=== PATIENT | female | born 1960 | race African-American/Black ===

== ENCOUNTER 2016-06-16 05:24 | Emergency (ER) | payer OTHER ==
--- NOTE | ~2016-06-16 | CT4 ---
[facility] A Service of [facility] RADIOLOGY TEXT RESULTS PATIENT: ARNOL ZAVALA LOCATION: SED : 56 UNIT #: [id number] AGE: [address]: Kathie Marrufo MD SEX: F ORDER DR: [id number] [place] [id number] E MR#: [id number] Acc #: [id number] NAME: ARNOL ZAVALA : 1960 SEX: F STUDY DATE/TIME: 06/16/2016 5:47 UNIT: SED ROOM: STUDY DESCRIPTION: CT Abd and Pelv Wo Cont Attending Physician: Kathie Marrufo M.D. Ordering Physician: Kathie Marrufo M.D. Primary Care Physician: Primary Care Physician No MEDICAL IMAGING REPORT This report is preliminary unless electronic signature is present. EXAM CT abdomen and pelvis without contrast, 06/16/2016 HISTORY 55-year-old female with blood in urine. Pain and urinary frequency since 01:00 today. Lower back pain. Hypertension. Previous cholecystectomy, hysterectomy. COMPARISON None. PROCEDURE 3.0 mm noncontrast axial images through the abdomen and pelvis. Enteric contrast was not administered. Sagittal and coronal reformatted images are obtained. TECHNIQUE This CT exam was performed with one or more of the following radiation dose reduction techniques: automatic exposure control, adjustment of mA and/or kV according to patient size, and iterative reconstruction. FINDINGS ABDOMEN FINDINGS: The study is limited secondary to attenuation by patient's body habitus. Kidneys have an unremarkable noncontrast appearance. No urinary tract stone or hydronephrosis or perinephric inflammation is seen. Lung bases are free of consolidation. Calcified granuloma is present within the right lower lobe. Cholecystectomy. Noncontrast appearance of the liver, spleen, pancreas and adrenal glands is within normal limits. Limited evaluation of bowel due to lack of enteric contrast but no focal bowel inflammation is seen. Appendix is normal. [facility] A Service of [facility] RADIOLOGY TEXT RESULTS PATIENT: ARNOL ZAVALA LOCATION: SED : 56 UNIT #: [id number] AGE: [address]: Kathie Marrufo MD SEX: F ORDER DR: PELVIS FINDINGS: Hysterectomy. Urinary bladder and rectum are normal. Calcified pelvic phleboliths incidentally noted. Degenerative disc changes are present at L3-4 through L5-S1. No acute osseous abnormalities are identified. Degenerative changes in the bilateral sacroiliac joints. IMPRESSION 1. No acute findings in the abdomen or pelvis. No urinary tract stone or hydronephrosis. 2. Normal appendix. 3. Cholecystectomy and hysterectomy. Dictated by... Kaelyn Green M.D. THIS IS AN ELECTRONICALLY VERIFIED REPORT Kaelyn Green M.D. at 06/17/2016 4:19 AM EMETERIO/debbie TD: 06/16/2016 09:59 JOB #: [id number] MEDICAL IMAGING REPORT Page 1 of 1
[2016-06-16 05:19] LABS: URINE SOURCE CLEAN CATCH
[2016-06-16 05:21] LABS: URINE APPEARANCE CLOUDY; URINE BILIRUBIN NEG (NEG); URINE BLOOD 3+ (NEG); URINE GLUCOSE NEG (NORM); URINE KETONE 1+ (NEG); URINE LEUKOCYTE ESTERASE 2+ (NEG); URINE NITRATE POS (NEG); URINE PH 7.5 (5-8); URINE PROTEIN 3+ (NEG); URINE SPECIFIC GRAVITY 1.015 (1.003-1.035)
[2016-06-16 05:22] LABS: URINE COLOR RED
[2016-06-16 05:23] LABS: MICRO INDICATED? YES
[~2016-06-16 05:24] MED LIST: ALBUTEROL17 GM INH; ASPIRIN81 M1 PO; LEVAQUIN750 M1 PO; LEVOXYL100 MC1 PO; LIPITOR; LOPRESSOR PO; NAPROXEN PO; SYNTHROID300 MCG PO; [UNRECOGNIZED DRUG - REMARK]
[2016-06-16 05:30] LABS: URINE RBC INNUM /[HPF] (0-2)
[2016-06-16 05:35] LABS: CULTURE INDICATED? YES; URINE BACTERIA NEG (NEG); URINE SQUAMOUS EPITHELIAL CELL OCCAS /[HPF]; URINE TRANSITIONAL EPI CELLS FEW /[HPF]
[2016-06-16 05:36] LABS: URINE MUCUS PRESENT
[2016-06-16 05:41] LABS: BASOPHIL% 0.3 % (0-2.5); DIFF IND NO; EOSINOPHIL# 0.1 X10e3 (0-0.7); HEMATOCRIT 38.1 % (35.0-45.0); HEMOGLOBIN 12.3 gm/dL (12.0-16.0); LYMPHOCYTE# 2.6 X10e3 (1.0-3.5); LYMPHOCYTE% 27.8 % (17.0-45.0); MEAN CELL VOLUME 88.9 FL (83-96); MEAN CORPUSCULAR HEMOGLOBIN 28.6 PG (28-34); MEAN CORPUSCULAR HGB CONC 32.2 g/dL (30-36); MEAN PLATELET VOLUME 8.5 FL (6.5-11.5); MONOCYTE# 0.9 X10e3 (0-1.0); MONOCYTE% 9.6 % (3.0-12.0); NEUTROPHIL# 5.8 X10e3 (1.5-7.1); NEUTROPHIL% 61.3 % (40-75); PLATELET COUNT 278 X10e3 (140-420); RED BLOOD COUNT 4.29 X10e (3.90-5.30); RED CELL DISTRIBUTION WIDTH 14.3 % (11.0-15.5); WHITE BLOOD COUNT 9.4 X10e3 (4.0-10.5)
[2016-06-16 05:52] LABS: BUN/CREATININE RATIO 18.57; CALCIUM SERUM 8.3 mg/dL (8.4-10.2); CREATININE SERUM 0.7 mg/dL (0.6-1.4); GLOM FILT RATE Estimated 111.5 mL/min (>60); POTASSIUM 3.6 mmol/L (3.5-5.1)
== END 2016-06-16 06:36 | disposition home or self-care (01) ==
LOC: SED 05:24
PROVIDERS: Emergency Medicine
DX: N30.01 Acute cystitis with hematuria (principal); I10 Essential (primary) hypertension; Z90.710 Acquired absence of both cervix and uterus; Z90.49 Acquired absence of other specified parts of digestive tract; Z87.442 Personal history of urinary calculi; Z79.899 Other long term (current) drug therapy
CPT/HCPCS: 36415; 74176; 80048; 81003; 85025; 87086; 87088; 87186; 96361; 96374; 96375; 99284; J0696; J1885

== ENCOUNTER → 2016-07-12 | Outpatient (CLI) | payer OTHER ==
--- NOTE | ~2016-07-12 | MY8 ---
[facility] A Service of [facility] RADIOLOGY TEXT RESULTS PATIENT: ARNOL ZAVALA LOCATION: [facility] : 56 UNIT #: [id number] AGE: [address]: JACKIE BELL APRN SEX: F ORDER DR: [id number] [facility] [address] [place], [place] [address] [id number] O MR#: [id number] Acc #: [id number] NAME: ARNOL ZAVALA : 1960 SEX: F STUDY DATE/TIME: 07/12/2016 9:51 UNIT: [facility] ROOM: STUDY DESCRIPTION: MY Mammogram Dx Dig Rt Attending Physician: Jackie Bell M.D. Referring Physician: Jackie Bell M.D. Ordering Physician: Jackie Bell M.D. Primary Care Physician: Jackie Bell M.D. MEDICAL IMAGING REPORT This report is preliminary unless electronic signature is present EXAM Right breast digital diagnostic mammogram with CAD Date 07/12/2016 HISTORY 55-year-old female with tubular density in the right breast on outside screening mammogram for which additional diagnostic imaging was recommended. COMPARISON Bilateral screening mammogram performed at [facility] 06/01/2069. No more remote available screening mammograms for comparison. FINDINGS Two MLO views obtained of the right breast utilizing digital technique and reviewed with an FDA-approved CAD device. Scattered fibroglandular tissue is present in the right breast. A serpiginous or tubular shaped structure is again seen within the lateral hemisphere of the right breast mid third depth, near the 9-10 o'clock axis. It measures nearly 7 cm in length, and dilated nearly 6 mm transversely. No associate architectural distortion microcalcification is seen. This tubular density persists and becomes more conspicuous on spot compression in the MLO and CC planes. Targeted diagnostic right breast ultrasound was performed on the same date. At the 10 o'clock axis right breast 6 cm from the nipple, a tubular fluid filled structure distended to 5 mm is seen, having the appearance of a dilated intramammary duct. It demonstrates no internal vascular flow is STS. [facility] A Service of [facility] RADIOLOGY TEXT RESULTS PATIENT: ARNOL ZAVALA LOCATION: [facility] : 56 UNIT #: [id number] AGE: [address]: JACKIE BELL APRN SEX: F ORDER DR: not thought to represent a blood vessel. Additionally, no internal debris or internal solid nodularity is identified within it. Impression 1. Right breast BIRADS category 3. Probably benign finding. What appears to be a solitary dilated intramammary ducts is noted in the 10 o'clock axis right breast 6 cm deep to the nipple. It demonstrates no concerning internal nodularity or internal debris. However, upon further questioning of the patient, she does relate a history of both spontaneous and elicited milky nipple discharge. For this reason, I would recommend breast surgical consultation at this time. Followup diagnostic right breast mammogram within 6 months would also be recommended to document stability, particularly given the lack of available correlation to more remote screening mammograms. The findings and recommendations were discussed with the patient today in the radiology department. BIRADS 3. Probable benign finding. 6-month followup recommended. RECOMMENDATIONS Breast surgical consultation. Patients over the age of 40 are entered into a reminder system with target due date for the next mammogram. A result letter will also be sent to the patient. Dictated by... Kaelyn Green M.D. THIS IS AN ELECTRONICALLY VERIFIED REPORT Kaelyn Green M.D. at 07/13/2016 2:22 PM EMETERIO/bronson TD: 07/12/2016 14:03 JOB #: [id number] MEDICAL IMAGING REPORT Page 1 of 1 COPY
--- NOTE | ~2016-07-12 | US24 ---
[facility] A Service of [facility] RADIOLOGY TEXT RESULTS PATIENT: ARNOL [facility]AVALA [id number] 56 UNIT #: [id number] AGE: [address]: EM BELL APRN SEX: F ORDER DR: [id number] [facility] [address] [place], [place] [address] [id number] O MR#: [id number] Acc #: [id number] NAME: ARNOL ZAVALA : 1960 SEX: F STUDY DATE/TIME: 07/12/2016 10:13 UNIT: [facility] ROOM: STUDY DESCRIPTION: US Breast Unilateral Attending Physician: Em Bell M.D. Referring Physician: Em Bell M.D. Ordering Physician: Em Bell M.D. Primary Care Physician: Em Bell M.D. MEDICAL IMAGING REPORT This report is preliminary unless electronic signature is present EXAM Targeted diagnostic right breast ultrasound 07/12/2016 HISTORY Tubular density structure on previous screening mammogram and on today's diagnostic mammogram. COMPARISON Bilateral screening mammogram performed at [facility] 06/01/2016. Right breast diagnostic mammogram 07/12/2016. FINDINGS Targeted sonographic imaging was performed of the right breast lateral hemisphere. Please refer to the diagnostic mammogram report from the same date for full description of mammographic and sonographic findings and recommendations. IMPRESSION Right breast BIRADS category 3. Probable benign finding. 6-month followup recommended. Breast surgical consultation recommended. Please refer to the diagnostic mammogram report for this same date for full description of mammographic and sonographic findings and recommendations. BIRADS: 3 Probably benign finding; short interval followup suggested Dictated by... Kaelyn Green M.D. THIS IS AN ELECTRONICALLY VERIFIED REPORT Kaelyn Green M.D. at 07/13/2016 2:22 PM [facility] A Service of [facility] RADIOLOGY TEXT RESULTS PATIENT: ARNOL ZAVALA [id number] 56 UNIT #: [id number] AGE: [address]: EM BELL APRN SEX: F ORDER DR: TD: 07/12/2016 14:00 JOB #: [id number] MEDICAL IMAGING REPORT Page 1 of 1 COPY
== END | disposition home or self-care (01) ==
LOC: CMAM 09:27
DX: R92.8 Other abnormal and inconclusive findings on diagnostic imaging of breast (principal); E66.01 Morbid (severe) obesity due to excess calories
CPT/HCPCS: 76641; G0206

== ENCOUNTER 2016-10-13 04:09 | Emergency (ER) | payer OTHER ==
[~2016-10-13] VITALS: Ht 165.1 cm; Wt 165.6 kg
== END 2016-10-13 05:46 | disposition home or self-care (01) ==
LOC: SED 04:09
DX: T78.3XXA Angioneurotic edema, initial encounter (principal); Z90.710 Acquired absence of both cervix and uterus; Z90.49 Acquired absence of other specified parts of digestive tract; Z79.899 Other long term (current) drug therapy
CPT/HCPCS: 96374; 96375; 99283; J1200; J2930